=== PATIENT | male | born 1965 | race Native Hawaiian/Other Pacific Islander ===

== ENCOUNTER 2016-09-21 15:17 | Outpatient (CLI) | payer OTHER ==
[2016-09-21 16:19] LABS: PLATELET COUNT 265 K/uL (142-355)
[2016-09-21 16:32] LABS: POTASSIUM 4.1 mmol/L (3.6-5.2); SODIUM 138 mmol/L (136-145)
== END 2016-09-21 20:28 | disposition home or self-care (01) ==
LOC: LABW 15:17
PROVIDERS: Physician Assistant
DX: L98.8 Other specified disorders of the skin and subcutaneous tissue (principal)
CPT/HCPCS: 36415; 80053; 85027; 85651; 86039; 86592